=== PATIENT | female | born 1950 | race Caucasian/White ===

== ENCOUNTER 2023-01-15 01:42 | Inpatient (IN) | payer MEDICARE, MEDICAID ==
[~2023-01-15] VITALS: Ht 162.6 cm; Wt 75.7 kg
--- NOTE | 2023-01-15 02:00 | NUR ---
[id number]. NAUSEA AND VOMITING X 30 MIN PRIOR TO PARAMEDICS ARRIVAL. PATIENT IS ARMANIAN SPEAKING. MOANING. AAOX4. PLACED COMFORTABLY IN BED. ATTACHED TO MONITOR. VITALS CHECKED.
[2023-01-15] MEDS ORDERED: ONDANSETRON HCL/PF 4 MG/2 ML VIAL ONE (02:06)
--- NOTE | 2023-01-15 02:09 | NUR ---
IV ADRI G20 INSERTED ON RIGHT FA. BLOOD DRAWN AND SENT TO LAB
--- NOTE | 2023-01-15 02:09 | NUR ---
MD AT BEDSIDE. WITH TELE DIVISION LEADER. PT IS FRANCISCO JAVIER SPEAKING
--- NOTE | 2023-01-15 02:16 | NUR ---
FERNIE ([facility]) [phone]
[2023-01-15] MEDS ORDERED: LORAZEPAM INJ 2 MG/ML VIAL ONE (02:28)
[2023-01-15] MEDS ORDERED: ONDANSETRON HCL/PF 4 MG/2 ML VIAL IVP ONE (02:30)
[2023-01-15] MEDS ORDERED: IV NS 0.9% 500 ML BAG IV ONE (02:30)
[2023-01-15] MEDS ORDERED: LORAZEPAM INJ 2 MG/ML VIAL IV ONE (02:30)
[2023-01-15 02:42] LABS: BASOPHILS # (AUTO) 0.1 K/uL (0.0-0.2); BASOPHILS % (AUTO) 0.5 % (0.0-2.0); EOSINOPHILS % (AUTO) 1.5 % (0.0-6.0); HEMATOCRIT 40 % (33-45); HEMOGLOBIN 12.8 g/dL (11.5-14.8); LYMPHOCYTES # (AUTO) 2.8 K/uL (0.8-4.8); LYMPHOCYTES % (AUTO) 19.2 % (20.0-44.0); MEAN CORPUSCULAR HGB CONC 32 g/dl (31.0-36.0); MEAN CORPUSCULAR VOLUME 91 fL (82-100); MONOCYTES # (AUTO) 1.2 K/uL (0.1-1.30); MONOCYTES % (AUTO) 7.9 % (2.0-12.0); NEUTROPHILS # (AUTO) 10.4 K/uL (1.8-8.9); NEUTROPHILS % (AUTO) 70.9 % (43.0-81.0); PLATELET COUNT (AUTO) 297 K/uL (150-450); RED BLOOD CELL COUNT(AUTO) 4.39 MIL/uL (4.0-5.2); WHITE BLOOD COUNT (AUTO) 14.7 K/uL (4.3-11.0)
[2023-01-15 02:48] LABS: CALCIUM, SERUM 8.9 mg/dL (8.5-10.1); CARBON DIOXIDE 28 mmol/L (21-32); CHLORIDE 108 mmol/L (98-107); CREATININE 0.9 mg/dL (0.6-1.3); GLUCOSE 142 mg/dL (74-106); POTASSIUM 3.6 mmol/L (3.5-5.1); SODIUM SERUM 141 mmol/L (136-145); UREA NITROGEN, BLOOD 18 mg/dL (7-18)
[2023-01-15 02:55] LABS: ALANINE AMINOTRANSFERASE 15 U/L (12-78); ALBUMIN 3.4 g/dL (3.4-5.0); ALKALINE PHOSPHATASE 97 U/L (46-116); ASPARTATE AMINOTRANSFERASE 15 U/L (15-37); BILIRUBIN,DIRECT 0.1 mg/dL (0.0-0.2); BILIRUBIN,TOTAL 0.2 mg/dL (0.2-1.0); TOTAL PROTEIN, SERUM 7.2 g/dL (6.4-8.2)
--- NOTE | 2023-01-15 02:59 | NUR ---
RECEIVED REPORT FROM CL VALDOVINOS. TROP OF PT 109. AWARE
[2023-01-15] MEDS ORDERED: ASPIRIN 325 MG TABLET PO ONE (03:00)
--- NOTE | 2023-01-15 03:03 | NUR ---
CAME BACK FROM CT DEPT
--- NOTE | 2023-01-15 03:05 | NUR ---
COVID SWAB AND SENT TO LAB
--- NOTE | 2023-01-15 03:43 | NUR ---
[facility] PAGED
[2023-01-15] MEDS ORDERED: ASPIRIN EC 325 MG TABLET.DR PO ONE (03:55)
[2023-01-15] MEDS ORDERED: ACETAMINOPHEN 325 MG TABLET PO PRN (04:00)
[2023-01-15] MEDS ORDERED: Z GUARD REMEDY 4 OZ OINT TP PRN (04:00)
[2023-01-15] MEDS ORDERED: DEXTROSE 50%-WATER 50 ML DISP.SYRIN IV PRN (04:00)
[2023-01-15] MEDS ORDERED: ONDANSETRON HCL/PF 4 MG/2 ML VIAL IVP PRN (04:00)
[2023-01-15] MEDS ORDERED: HYDROCODONE/APAP 5/325MG TABLET PO PRN (04:00)
--- NOTE | 2023-01-15 04:24 | NUR ---
REPORT GIVEN TO CYRUS RAMOS
--- NOTE | 2023-01-15 04:26 | NUR ---
REPEAT TROP TAKEN BY INSERTING OPERATOR.
--- NOTE | 2023-01-15 04:53 | NUR ---
TRANSFERRED PT TO ROOM VIA ACLS PROTOCOL
--- NOTE | 2023-01-15 05:13 | NUR ---
0513 Critical troponin result 111 relayed to [facility] Flowers with no order made.
--- NOTE | 2023-01-15 05:20 | NUR ---
MANAGER CITYENDO TECH NOTE RECEIVED REPORT FROM [facility] ER-RN. PATIENT WAS BROUGHT TO THE UNIT AT AROUND 0450 VIA STRETCHER, ACCOMPANIED BY 2 ER STAFFS. PATIENT HAS C/C OF AND WITH SENSATION OF FOREIGN BODY IN THROAT AND WAS DIAGNOSED WITH NSTEMI. DIRECTED TO ROOM 119-1. PATIENT IS ALERT AND ORIENTED X4. MALAYSIAN SPEAKING. ABLE TO MAKE NEEDS KNOWN. AFEBRILE AND NOT IN ANY FORM OF ACUTE DISTRESS. BREATHING EVEN AND NON LABORED. NO C/O PAIN OR DISCOMFORT AT THIS TIME. ORIENTED TO NEW ENVIRONMENT AND EXPLAINED ADMISSION PROCESS INCLUDING SKIN ASSESSMENT WHICH THE PATIENT AGREED. SKIN IS INTACT. WITH IV ACCESS ON RIGHT FOREARM 20G-SL. VITALS TAKEN AND WNL. ATTACHED ON TELE MONITORING WITH CURRENT READING OF SR 83. SAFETY MEASURES IN PLACE. KEPT BED IN LOCKED AND IN LOW POSITION. SIDE RAILS UP X2. ADVISED TO USE THE CALL LIGHT WHEN IN NEED OF ASSISTANCE.
[2023-01-15 05:39] VITALS: BP 119/57
--- NOTE | 2023-01-15 06:30 | NUR ---
RN MIDWIFE CLOSING NOTE PATIENT IN BED, ASLEEP BUT EASY TO AROUSE AND RESPONSIVE. ALERT AND ORIENTED X4. ABLE TO MAKE NEEDS KNOWN. AFEBRILE AND NOT IN ANY FORM OF ACUTE DISTRESS. BREATHING EVEN AND NON LABORED. NO C/O PAIN OR DISCOMFORT. WITH IV ACCESS ON RIGHT FOREARM 20G- SL. MONITORED FOR ANY S/SX. OF HYPO/HYPERGLYCEMIA. SAFETY MEASURES IN PLACE. KEPT BED IN LOCKED AND IN LOW POSITION. SIDE RAILS UP X2. ADVISED TO USE THE CALL LIGHT WHEN IN NEED OF ASSISTANCE. ALL NURSING NEEDS ATTENDED. ENDORSED TO INCOMING SHIFT FOR CONTINUITY OF CARE.
[2023-01-15] MEDS: BLOOD SUGAR DIAGNOSTIC 1 EACH STRIP IN SCH ×4 (07:00→21:07)
[2023-01-15] MEDS: INSULIN REGULAR, HUMAN 100 UNIT/ML 3 ML VIAL SQ PRN ×3 (07:05→21:07)
--- NOTE | 2023-01-15 07:25 | NUR ---
ms rn received on bed, awake,alert,oriented x4,farsi speaking lady, not in any form of distress, respirations even and unlabored,no sob noted, lungs are clear,abdomen soft,positive bowel sounds,denies pain at this time,all needs attended.
[2023-01-15 08:00] VITALS: BP 108/68
[2023-01-15] MEDS ORDERED: ENOXAPARIN SODIUM 40 MG/0.4 ML DISP.SYRIN SQ SCH (09:00)
[2023-01-15] MEDS: PANTOPRAZOLE 40 MG TABLET.DR PO SCH (09:13)
--- NOTE | 2023-01-15 11:00 | NUR ---
ms alexa was seen by davon faustin w/ orders made and carried out, urine specimen sent for u/a analysis.
[2023-01-15] MEDS ORDERED: ATOR40TA PO (11:02)
[2023-01-15] MEDS ORDERED: OXYB10TA30 PO (11:02)
[2023-01-15] MEDS ORDERED: SACU1TAB4 PO (11:02)
[2023-01-15] MEDS ORDERED: INSU100V9 SQ (11:02)
[2023-01-15] MEDS ORDERED: CLOP75TA15 PO (11:03)
[2023-01-15] MEDS ORDERED: GLIM4TAB37 PO (11:03)
[2023-01-15] MEDS ORDERED: POTA10TA10 PO (11:03)
[2023-01-15] MEDS ORDERED: CARV6.252 PO (11:03)
[2023-01-15] MEDS ORDERED: INSU100I26 SQ (11:03)
[2023-01-15] MEDS ORDERED: FENO145T21 PO (11:03)
[2023-01-15] MEDS ORDERED: CYAN-51 PO (11:03)
[2023-01-15] MEDS ORDERED: FURO20TA4 PO (11:03)
[2023-01-15] MEDS ORDERED: APIX5TAB PO (11:03)
[2023-01-15] MEDS ORDERED: AMYL1CAP56 PO (11:03)
[2023-01-15] MEDS ORDERED: CHOL200010 PO (11:03)
[2023-01-15 12:00] VITALS: BP 114/68
[2023-01-15] MEDS: CARVEDILOL 6.25 MG TABLET PO SCH ×2 (12:30→17:36)
--- NOTE | 2023-01-15 13:00 | NUR ---
ms seed corn production manager at bedside, updated w/ plan of care .all needs attended.
[2023-01-15] MEDS: FENOFIBRATE NANOCRYS (145 MG) 145 MG TABLET PO SCH (14:51)
[2023-01-15] MEDS: OXYBUTYNIN CHLORIDE ER 5 MG TAB PO SCH (14:51)
[2023-01-15] MEDS: GLIMEPIRIDE 4 MG TABLET PO SCH (14:51)
[2023-01-15] MEDS: ATORVASTATIN 40 MG TABLET PO SCH (14:51)
[2023-01-15] MEDS: POTASSIUM CHLORIDE 10 MEQ TABLET.SA PO SCH (14:51)
[2023-01-15] MEDS: CYANOCOBALAMIN 500 MCG TABLET PO SCH (14:51)
[2023-01-15] MEDS: FUROSEMIDE 20 MG TABLET PO SCH (14:52)
[2023-01-15] MEDS: CHOLECALCIFEROL (VITAMIN D 3) 400 UNIT TABLET PO SCH (14:52)
[2023-01-15 16:00] VITALS: BP 139/68
[2023-01-15] MEDS: APIXABAN 5 MG TABLET PO SCH (17:00)
[2023-01-15 17:25] LABS: BILIRUBIN,URINE NEGATIVE (NEGATIVE); COLOR,URINE YELLOW (YELLOW); LEUKOCYTE ESTERASE ,URINE NEGATIVE (NEGATIVE); NITRITE, URINE NEGATIVE (NEGATIVE); PH,URINE 5.5 (5.0-8.0); PROTEIN,URINE NEGATIVE (NEGATIVE); UGLUCOSE NEGATIVE (NEGATIVE); UROBILINOGEN,URINE 0.2 EU/dL (0.2)
[2023-01-15] MEDS: CLOPIDOGREL BISULFATE 75 MG TABLET PO SCH (17:35)
[2023-01-15] MEDS: LIPASE/PROTEASE/AMYLASE 1 EACH CAPSULE.DR PO SCH (17:35)
--- NOTE | 2023-01-15 19:18 | NUR ---
RN NOTE RECEIVED PT FOR CONTINUITY OF CARE. PATIENT A/OX4 ; GREENLANDIC SPEAKING IN NO S/SX OF ACUTE DISTRESS AT THIS TIME; CURRENTLY ON ROOM AIR; WITH 02 SAT >95% AT THIS TIME.WITH IV ACCESS PATENT, INTACT AND FLUSHING WELL. WILL ENSURE SAFETY MEASURES WITHIN THE SHIFT. PATIENT BED ALARM IS ON. HEAD OF BED ELEVATED. BED IS LOCKED, IN LOWEST POSITION AND SIDE RAILS UP. CALL LIGHT WITHIN REACH OF THE PATIENT. WILL CONTINUE TO MONITOR AND REASSESS FOR ANY CHANGES AND WILL CARRY OUT ANY ONGOING AND ACTIVE MD ORDER.
[2023-01-15 20:00] VITALS: BP 127/71
[2023-01-15] MEDS: LOSARTAN POTASSIUM 25 MG TABLET PO SCH (21:03)
[2023-01-15] MEDS: SACUBITRIL/VALSARTAN 1 EACH TABLET PO SCH (21:03)
--- NOTE | 2023-01-15 22:00 | NUR ---
RN NOTE REPORT GIVEN TO CYRUS MONTENEGRO FOR YOLANDA. PROGRAMMING INTERN AWARE.
--- NOTE | 2023-01-15 22:20 | NUR ---
WELDING PANTOGRAPH OPERATOR OPENING NOTES RECEIVED PATIENT IN BED SLEEPING. EASILY AWAKEN BY VERBAL STIMULI. PATIENT A/O X 4 ; MONGOLIAN SPEAKING. ON RA, BREATHING EVEN AND UNLABORED, NO S/SX OF ACUTE DISTRESS AT THIS TIME. IV ACCESS RFA #20G, PATENT, INTACT AND FLUSHING WELL. SAFETY MEASURES MAINTAINED WITH BED IN LOWEST AND LOCK POSITION. BED ALARM IS ON. HEAD OF BED ELEVATED. SIDE RAILS UP X 2. CALL LIGHT AND TABLE WITHIN REACH. WILL CONTINUE WITH THE PLAN OF CARE.
[2023-01-16] VITALS: BP 124/63
[2023-01-16 04:00] VITALS: BP 136/72
--- NOTE | 2023-01-16 04:28 | NUR ---
RN NOTES RECEIVED TROPONIN LEVEL OF 99 FROM [facility] OF LAB. WILL CONTINUE TO MONITOR THE PATIENT.
[2023-01-16 07:09] LABS: BASOPHILS % (AUTO) 0.5 % (0.0-2.0); EOSINOPHILS % (AUTO) 2.8 % (0.0-6.0); HEMATOCRIT 36 % (33-45); HEMOGLOBIN 11.5 g/dL (11.5-14.8); LYMPHOCYTES # (AUTO) 2.8 K/uL (0.8-4.8); LYMPHOCYTES % (AUTO) 33.3 % (20.0-44.0); MEAN CORPUSCULAR HGB CONC 32 g/dl (31.0-36.0); MEAN CORPUSCULAR VOLUME 91 fL (82-100); MONOCYTES # (AUTO) 0.9 K/uL (0.1-1.30); MONOCYTES % (AUTO) 11.1 % (2.0-12.0); NEUTROPHILS # (AUTO) 4.4 K/uL (1.8-8.9); NEUTROPHILS % (AUTO) 52.3 % (43.0-81.0); PLATELET COUNT (AUTO) 291 K/uL (150-450); WHITE BLOOD COUNT (AUTO) 8.3 K/uL (4.3-11.0)
--- NOTE | 2023-01-16 07:13 | NUR ---
AIRCRAFT ELECTRONICS TECHNICAL OFFICER CLOSING NOTES PATIENT IN BED AWAKE, ALET AND ORIENTED. PATIENT A/O X 4, CENTRAL AFRICAN SPEAKING. ON RA, BREATHING EVEN AND UNLABORED, NO S/SX OF ACUTE DISTRESS AT THIS TIME. IV ACCESS RFA #20G, PATENT, INTACT AND FLUSHING WELL. SAFETY MEASURES MAINTAINED WITH BED IN LOWEST AND LOCK POSITION. BED ALARM IS ON. HEAD OF BED ELEVATED. SIDE RAILS UP X 2. CALL LIGHT AND TABLE WITHIN REACH. WILL ENDORSE TO THE NEXT SHIFT.
[2023-01-16] MEDS: BLOOD SUGAR DIAGNOSTIC 1 EACH STRIP IN SCH ×4 (07:39→22:12)
--- NOTE | 2023-01-16 07:49 | NUR ---
SEPARATING MACHINE OPERATOR OPENING OTES PATIENT IN BED ASLEEP. EASILY AROUSABLE. ALET AND ORIENTED. PATIENT A/O X 4, GERMAN/MARSHALLESE SPEAKING. ON RA, BREATHING EVEN AND UNLABORED, NO S/SX OF ACUTE DISTRESS AT THIS TIME. IV ACCESS RFA #20G, PATENT, INTACT AND FLUSHING WELL. ALL SAFETY MEASURES IN PLACE. BED IN LOWEST AND LOCK POSITION. BED ALARM IS ON. HEAD OF BED ELEVATED. SIDE RAILS UP X 2. CALL LIGHT AND TABLE WITHIN REACH.
[2023-01-16 08:00] VITALS: BP 139/73
[2023-01-16 08:10] LABS: CALCIUM, SERUM 8.9 mg/dL (8.5-10.1); CREATININE 1.1 mg/dL (0.6-1.3); MAGNESIUM 1.8 mg/dL (1.8-2.4); PHOSPHORUS 4.1 mg/dL (2.5-4.9); POTASSIUM 3.4 mmol/L (3.5-5.1)
[2023-01-16] MEDS: CARVEDILOL 6.25 MG TABLET PO SCH ×2 (08:31→16:48)
[2023-01-16] MEDS: ASPIRIN EC 81 MG TABLET.DR PO SCH (08:32)
[2023-01-16] MEDS: GLIMEPIRIDE 4 MG TABLET PO SCH (08:32)
[2023-01-16] MEDS: PANTOPRAZOLE 40 MG TABLET.DR PO SCH (08:32)
[2023-01-16] MEDS: LOSARTAN POTASSIUM 25 MG TABLET PO SCH (08:33)
[2023-01-16] MEDS: FUROSEMIDE 20 MG TABLET PO SCH (08:33)
[2023-01-16] MEDS: ATORVASTATIN 40 MG TABLET PO SCH (08:33)
[2023-01-16] MEDS: OXYBUTYNIN CHLORIDE ER 5 MG TAB PO SCH (08:33)
[2023-01-16] MEDS: POTASSIUM CHLORIDE 10 MEQ TABLET.SA PO SCH (08:33)
[2023-01-16] MEDS: CHOLECALCIFEROL (VITAMIN D 3) 400 UNIT TABLET PO SCH (08:34)
[2023-01-16] MEDS: CYANOCOBALAMIN 500 MCG TABLET PO SCH (08:34)
[2023-01-16] MEDS: LIPASE/PROTEASE/AMYLASE 1 EACH CAPSULE.DR PO SCH ×2 (08:34→16:52)
[2023-01-16] MEDS ORDERED: ASPIRIN 81 MG TAB.CHEW PO SCH (09:00)
[2023-01-16] MEDS: SACUBITRIL/VALSARTAN 1 EACH TABLET PO SCH ×2 (09:00→16:52)
[2023-01-16] MEDS: CLOPIDOGREL BISULFATE 75 MG TABLET PO SCH (09:30)
[2023-01-16] MEDS: APIXABAN 5 MG TABLET PO SCH ×2 (09:31→16:53)
[2023-01-16] MEDS: FENOFIBRATE NANOCRYS (145 MG) 145 MG TABLET PO SCH (09:31)
--- NOTE | 2023-01-16 09:32 | NUR ---
per dr.tanbe zhang to give plavix, and eliquis. notified that carvedilol was held at this time due to low hr 57
--- NOTE | 2023-01-16 09:59 | NUR ---
rn note per professional architect johnny notified that bp is 111/60, hr 59 and if okay to hold valsartan. said okay to hold
[2023-01-16] MEDS: INSULIN REGULAR, HUMAN 100 UNIT/ML 3 ML VIAL SQ PRN ×2 (11:56→22:24)
[2023-01-16 12:00] VITALS: BP 140/71
--- NOTE | 2023-01-16 15:16 | NUR ---
rn note pt left for [facility].
[2023-01-16] MEDS: METOPROLOL TARTRATE INJ 5 MG/5 ML AMPUL IVP PRN ×2 (15:30→15:42)
[2023-01-16] MEDS ORDERED: IV NS 0.9% 250 ML IV ONE (15:31)
[2023-01-16] MEDS ORDERED: METOPROLOL TARTRATE INJ 5 MG/5 ML AMPUL ONE (15:31)
[2023-01-16] MEDS ORDERED: IOHEXOL-350 100 ML VIAL IV ONE (15:31)
[2023-01-16] MEDS ORDERED: NITROGLYCERIN 0.4 MG/TAB BOTTLE ONE (15:31)
[2023-01-16] MEDS ORDERED: CT SWABBABLE VALVE TRANS SET 1 EA INFUS.SET MC ONE (15:31)
--- NOTE | 2023-01-16 15:45 | NUR ---
RN NOTES [facility] PROCEDURE WELL TOLERATED BY THE PT. PT IS AAOX4, NOT IN RESPIRATORY DISTRESS, V/S STABLE, KEPT RESTED AND COMFORTABLE. REPORT GIVEN TO CYRUS KAM FOR YOLANDA.
[2023-01-16 16:00] VITALS: BP 145/77
[2023-01-16] MEDS ORDERED: NITROGLYCERIN 0.4 MG/TAB BOTTLE SL ONE (16:00)
--- NOTE | 2023-01-16 19:17 | NUR ---
CANAL TENDER CLOSING NOTES PT ALERT AND ORIENTED X 4, YI/CROATIAN SPEAKING. ON RA, BREATHING EVEN AND UNLABORED, NO S/SX OF ACUTE DISTRESS AT THIS TIME. IV ACCESS LFA #20G, PATENT, INTACT AND FLUSHING WELL. PT IS AMBULATORY AND INDEPENDENT. ALL SAFETY MEASURES IN PLACE. BED IN LOWEST AND LOCKED POSITION.SIDE RAILS UP X2. BED ALARM IS ON. HEAD OF BED ELEVATED. CALL LIGHT AND TABLE WITHIN REACH. ENDORSED TO ORIENTAL RUG STRETCHER RN FOR CONUITY OF CARE
[2023-01-16 20:00] VITALS: BP 142/73
--- NOTE | 2023-01-16 20:00 | NUR ---
CARDIOTHORACIC ICU RN OPENING NOTES RECEIVED PATIENT IN BED, AAO X3, ON R/A SATING 97%. NO SOB/DISTRESS NOTED. ON TELE MONITOR SR -SB HR 63.V/S STABLE AFEBRILE . IV ACCESS ON LEFT FA 2OG INTACT AND PATENT. NO S/SX OF INFILTRATION NOTED. SAFETY PRECAUTIONS IN PLACE: BED LOCKED AND IN LOWEST POSITION, CALL LIGHT WITHIN REACH, SIDE RAILS UP X3.ALL DUE MEDS GIVEN ORDERED ,NO ASE NOTED .WILL CONTINUE TO MONITOR PTS.
--- NOTE | 2023-01-16 22:34 | NUR ---
DIALYSIS BIOMED TECHNICIAN NOTES Blood sugar at 10pm is 238mg/dl,4 units of regular insulin given per sliding scale .
[2023-01-17] VITALS: BP 112/61
--- NOTE | 2023-01-17 02:45 | NUR ---
FIREWORKS DISPLAY SPECIALIST NOTES PTS NOTED ANNABELLA 39 , CHECK PTS , PTS IS AWAKE NO S/S OF DISTRESS OR SOB .DR SAUNDERS MADE AWARE WITH NNO , WILL CONTINUE TO MONITOR PTS.
[2023-01-17 04:00] VITALS: BP 152/65
--- NOTE | 2023-01-17 07:21 | NUR ---
REGIONAL BUSINESS DEVELOPMENT MANAGER OPENING NOTES PT ALERT AND ORIENTED X 4, INDONESIAN/GUINEAN SPEAKING. ON RA, BREATHING EVEN AND UNLABORED, NO S/SX OF ACUTE DISTRESS AT THIS TIME. IV ACCESS LFA #20G, PATENT, INTACT AND FLUSHING WELL. PT IS AMBULATORY AND INDEPENDENT. ALL SAFETY MEASURES IN PLACE. BED IN LOWEST AND LOCKED POSITION.SIDE RAILS UP X2. BED ALARM IS ON.
--- NOTE | 2023-01-17 07:28 | NUR ---
BRIDGE CARPENTER NOTES PTS REMAIN IN BED AWAKE NO SOB NO DISTRESS NOTED ON R/A SATING 97%WILL ENDORSE PTS TO RN DAY SHIFT FOR CONTINUITY OF CARE.
[2023-01-17] MEDS: BLOOD SUGAR DIAGNOSTIC 1 EACH STRIP IN SCH ×2 (07:37→11:43)
[2023-01-17 08:00] VITALS: BP 109/63
[2023-01-17] MEDS: GLIMEPIRIDE 4 MG TABLET PO SCH (08:13)
[2023-01-17] MEDS: OXYBUTYNIN CHLORIDE ER 5 MG TAB PO SCH (08:13)
[2023-01-17] MEDS: POTASSIUM CHLORIDE 10 MEQ TABLET.SA PO SCH (08:13)
[2023-01-17] MEDS: PANTOPRAZOLE 40 MG TABLET.DR PO SCH (08:13)
[2023-01-17] MEDS: ASPIRIN EC 81 MG TABLET.DR PO SCH (08:13)
[2023-01-17] MEDS: FUROSEMIDE 20 MG TABLET PO SCH (08:13)
[2023-01-17] MEDS: LIPASE/PROTEASE/AMYLASE 1 EACH CAPSULE.DR PO SCH (08:14)
[2023-01-17] MEDS: CLOPIDOGREL BISULFATE 75 MG TABLET PO SCH (08:14)
[2023-01-17] MEDS: FENOFIBRATE NANOCRYS (145 MG) 145 MG TABLET PO SCH (08:14)
[2023-01-17] MEDS: CYANOCOBALAMIN 500 MCG TABLET PO SCH (08:14)
[2023-01-17] MEDS: CHOLECALCIFEROL (VITAMIN D 3) 400 UNIT TABLET PO SCH (08:14)
[2023-01-17] MEDS: ATORVASTATIN 40 MG TABLET PO SCH (08:14)
[2023-01-17] MEDS: APIXABAN 5 MG TABLET PO SCH (08:15)
[2023-01-17] MEDS: CARVEDILOL 6.25 MG TABLET PO SCH (08:17)
[2023-01-17] MEDS: SACUBITRIL/VALSARTAN 1 EACH TABLET PO SCH (08:18)
--- NOTE | 2023-01-17 08:18 | NUR ---
RN NOTE NOTIFIED MARINE SUPERINTENDENT MARIUSZ PELLETIER IF COREG AND VALSARTAN CAN HELD AT THIS TIME DUE TO BP 109/63 AND HR 58. OKAY TO HOLD
[2023-01-17 12:00] VITALS: BP 119/60
[2023-01-17] MEDS: INSULIN REGULAR, HUMAN 100 UNIT/ML 3 ML VIAL SQ PRN (12:11)
--- NOTE | 2023-01-17 14:44 | NUR ---
learning officer note pt left in stable condition. picked up by daughter. alert and oriented x4. removed tele monitor box, and iv. went over discharge instructions paperwork with family and pt. verbalized understanding.escorted out by family members
== END 2023-01-17 14:41 | disposition home or self-care (01) | DRG 281 ==
LOC: ER 01:49 → TELE1 04:13
PROVIDERS: ADMIT Nurse Practitioner Acute Care; ATTEND Nurse Practitioner Acute Care
DX: I50.43 Acute on chronic combined systolic (congestive) and diastolic (congestive) heart failure (principal); I21.A1 Myocardial infarction type 2; D68.59 Other primary thrombophilia; Z20.822 Contact with and (suspected) exposure to COVID-19; I25.10 Atherosclerotic heart disease of native coronary artery without angina pectoris; E11.9 Type 2 diabetes mellitus without complications; D72.829 Elevated white blood cell count, unspecified; E66.9 Obesity, unspecified; E78.5 Hyperlipidemia, unspecified; Z79.4 Long term (current) use of insulin; Z79.02 Long term (current) use of antithrombotics/antiplatelets; Z79.01 Long term (current) use of anticoagulants; Z79.84 Long term (current) use of oral hypoglycemic drugs; Z79.899 Other long term (current) drug therapy; I25.2 Old myocardial infarction; I51.3 Intracardiac thrombosis, not elsewhere classified; I25.5 Ischemic cardiomyopathy
CPT/HCPCS: 36415; 70490-TC; 71045-TC; 75574; 80048-TC; 80061-TC; 80076-TC; 82962-TC; 83735-TC; 84100-TC; 84484-TC; 85025-TC; 87081-TC; 93307-TC; G0378; J1650; J1815; J2060; J2405; J3490; J7030; J7050; Q9967